=== PATIENT | female | born 1955 | race Caucasian/White ===

== ENCOUNTER 2019-05-21 19:51 | Emergency (ER) | payer MEDICARE, MEDICAID ==
[~2019-05-21] VITALS: Ht 152.4 cm; Wt 59.0 kg
[2019-05-21 21:04] LABS: HEMATOCRIT. 32.7 % (36.0-48.0); HEMOGLOBIN. 10.2 g/dL (12.0-16.0); MEAN CORPUSCULAR HEMOGLOBIN 26.7 pg (28.0-32.0); MEAN CORPUSCULAR VOLUME 85.3 fL (81.0-99.0); MEAN PLATELET VOLUME 7.9 fl (7.4-10.4); PLATELET 316 x1000/uL (130-400); RED BLOOD CELL COUNT 3.83 mill/uL (4.2-5.4); RED CELL DISTRIBUTION WIDTH 18.4 % (11.6-14.6)
[2019-05-21 21:08] LABS: CHLORIDE 105 mEq/L (98-107)
[2019-05-21 21:17] LABS: PLATELET ESTIMATE NORMAL
[2019-05-21] MEDS ORDERED: ASPIRIN 325MG EC TABLET PO ONE (21:45)
[2019-05-21 22:58] VITALS: BP 130/63
== END 2019-05-21 23:43 | disposition short-term general hospital (02) ==
LOC: ER 19:51
DX: R07.89 Other chest pain (principal); Z98.890 Other specified postprocedural states; Z85.038 Personal history of other malignant neoplasm of large intestine; Z86.19 Personal history of other infectious and parasitic diseases; E03.9 Hypothyroidism, unspecified
CPT/HCPCS: 36415; 71045; 83880; 84484; 93005; 99285